=== PATIENT | female | born 1985 | race American Indian/Alaskan Native ===

== ENCOUNTER 2021-09-01 13:20 | Outpatient (CLI) | payer SELFPAY ==
[2021-09-01] MEDS ORDERED: LACTATED RINGERS 1,000 ML IV ONE (15:43)
[2021-09-01 16:43] LABS: Bilirubin,Urine NEG (Negative); Blood,Urine NEG (Negative); Color,Urine Yellow (Yellow); Protein,Urine <15 mg/dL mg/dL (Negative); Urobilinogen,Urine < 2.0 mg/dL (<2.0)
[2021-09-01 17:39] VITALS: BP 94/56
--- NOTE | 2021-09-01 18:18 | Event Note ---
Date: 09/01/21 called by CNMW with abnormal u/s report for pt at 28wks with polyhydramnios of 36 with concerns for anomaly. Pt seen in triage with ctx and cervix closed and FFN negative. I spoke with [facility], Dr. Karimi, who states he can see pt later this wk and pt given appt for 09/05/21 at the [place] office. Pt encouraged to be compliant. BPP 8/8. FHR with ctx that resolved after fluids given. Pt also given diflucan 150mg x1 for wetprep done with yeast. All questions encouraged and answered and shared decision making done with follow up with high [facility].
[2021-09-01] MEDS ORDERED: FLUCONAZOLE 200 MG TAB PO ONE (19:00)
[2021-09-02] MEDS ORDERED: FLUCONAZOLE 100 MG TAB PO ONE (17:44)
== END 2021-09-01 19:30 | disposition home or self-care (01) ==
LOC: APU 13:20 → TRG 13:20
PROVIDERS: ATTEND Obstetrics & Gynecology
DX: O40.3XX0 Polyhydramnios, third trimester, not applicable or unspecified (principal); O09.523 Supervision of elderly multigravida, third trimester; Z3A.29 29 weeks gestation of pregnancy
CPT/HCPCS: 36415; 59025; 81001; 82731; 87210; 96360; J7120

== ENCOUNTER 2021-10-31 09:07 | Outpatient (CLI) | payer SELFPAY ==
[2021-10-31 11:22] VITALS: BP 118/80
[2021-10-31] MEDS ORDERED: LACTATED RINGERS 500 ML IV ONE (13:34)
[2021-10-31 14:08] LABS: Bacteria,Urine 2+ /HPF (Negative)
[2021-10-31 14:13] LABS: Color,Urine Straw (Yellow)
[2021-10-31 14:42] LABS: Basophils # (Auto) 0.1 K/mm3 (0.0-0.1); Eosinophils % (Auto) 0.3 % (0.0-4.3); Hematocrit 37.9 % (30.3-42.9); Hemoglobin 12.9 gm/dl (10.1-14.3); Lymphocytes # (Auto) 1.7 K/mm3 (1.2-5.4); Lymphocytes % (Auto) 21.7 % (13.4-35.0); Mean Corpuscular HGB Conc 34 % (30-34); Mean Corpuscular Volume 81 fl (79-97); Monocytes # (Auto) 0.6 K/mm3 (0.0-0.8); Monocytes % (Auto) 7.5 % (0.0-7.3); Platelet Count 233 K/mm3 (140-440); Red Cell Distribution Width 16.4 % (13.2-15.2)
[2021-10-31 14:54] LABS: Alanine Aminotransferase 91 units/L (7-56); Albumin 3.6 g/dL (3.9-5); Blood Urea Nitrogen 7 mg/dL (7-17); Calcium 9.5 mg/dL (8.4-10.2); Hemolysis Index 7
[2021-10-31 14:55] LABS: BUN/Creatinine Ratio 14
--- NOTE | 2021-10-31 15:42 | Ultrasound Report ---
Limited OB ultrasound Biophysical profile INDICATION: Obstruction FINDINGS: There is a single live intrauterine in cephalic position. Fundal placenta grade 1 . heart rate 1 56 bpm. Estimated age 36 weeks 5 days. No placental separation or abruption is s een. Biophysical profile 8 out of 8. IMPRESSION: Single live intrauterine . No abruption is seen. Biophysical profile 8 out of 8 Signer Name: Jamari Garay MD Signed: 10/31/2021 3:37 PM Workstation Name: [facility]
--- NOTE | 2021-10-31 15:42 | Ultrasound Report ---
Limited OB ultrasound Biophysical profile INDICATION: Obstruction FINDINGS: There is a single live intrauterine in cephalic position. Fundal placenta grade 1 . heart rate 1 56 bpm. Estimated age 36 weeks 5 days. No placental separation or abruption is s een. Biophysical profile 8 out of 8. IMPRESSION: Single live intrauterine . No abruption is seen. Biophysical profile 8 out of 8 Signer Name: Jamari Garay MD Signed: 10/31/2021 3:37 PM Workstation Name: [facility]
== END 2021-10-31 16:18 | disposition home or self-care (01) ==
LOC: TRG 09:07 → APU 09:08 → TRG 16:18
PROVIDERS: ATTEND Obstetrics & Gynecology Gynecology
DX: O26.893 Other specified pregnancy related conditions, third trimester (principal); R10.9 Unspecified abdominal pain; O09.523 Supervision of elderly multigravida, third trimester; Z3A.36 36 weeks gestation of pregnancy
CPT/HCPCS: 36415; 59025; 76815; 76819; 80053; 81001; 85025; 87086; 96360

== ENCOUNTER 2021-11-05 10:14 | Outpatient (CLI) | payer SELFPAY ==
[2021-11-05 12:06] VITALS: BP 119/76
--- NOTE | 2021-11-05 13:47 | Ultrasound Report ---
ULTRASOUND OBSTETRIC ULTRASOUND BIOPHYSICAL PROFILE INDICATION: Evaluate anatomy/ well being. Clinical Gestational Age (GA): 37.3 weeks TECHNIQUE: Transabdominal. COMPARISON: Limited OB ultrasound performed on 10/31/2021. FINDINGS: There is a single intrauterine . Biparietal Diameter = 9.17 cm = 37 weeks, 2 day(s). Head Circumference = 33.03 cm = 37 weeks, 4 day(s). Abdominal Circumference = 33.36 cm = 37 weeks, 2 day(s). Femur Length = 7.32 cm = 37 weeks, 3 day(s). Average Ultrasound Age (AUA) = 37 weeks, 3 day(s). Heart Rate: 141 beats per minute. Estimated Weight in grams (if calculated): 3185 Estimated Weight Growth Percentile (if calculated): 57 Position: breech. Cervix: closed. Length in cm (if measured): Not measured Placenta: posterofundal and free of the os. Amniotic Fluid Volume: normal Amniotic Fluid Index (OTILIA) in cm (if calculated): 18.6. Maternal Adnexa: No significant abnormality. anatomy: There is limited visualization of the brain. No other significant abnormality. BREATHING MOVEMENT = 2 GROSS BODY MOVEMENT = 2 TONE = 2 QUALITATIVE AMNIOTIC FLUID VOLUME = 2 TOTAL BIOPHYSICAL SCORE = 8/8 IMPRESSION: 1. Single, living intrauterine with estimated sonographic age of 37 weeks, 3 day(s). 2. No significant sonographic abnormality. 3. Normal biophysical profile of /8. Signer Name: Babar Barrientos MD Signed: 11/05/2021 1:43 PM Workstation Name: [email or web address]
== END 2021-11-05 12:35 | disposition home or self-care (01) ==
LOC: TRG 10:14 → APU 10:16 → TRG 12:35
PROVIDERS: ATTEND Obstetrics & Gynecology Gynecology
DX: O09.893 Supervision of other high risk pregnancies, third trimester (principal); Z3A.37 37 weeks gestation of pregnancy
CPT/HCPCS: 59025; 76805; 76819

== ENCOUNTER 2021-11-06 14:28 | Inpatient (IN) | payer SELFPAY ==
--- NOTE | 2021-11-06 15:03 | History and Physical Report ---
History of Present Illness Date of examination: 11/06/21 Date of admission: 11/06/2021 Chief complaint: My water broke today at 1330. History of present illness: Early entry to care; course complicated by a UTI (treated); Vitamin D Deficiency (PO Vit. D Supplements); a abnormal ultrasound at 29 5/7 weeks in which no stomach was seen and Polyhramnios was appreciated (had normal anatomy scan at [facility]). Past History Past Medical History: no pertinent history Past Surgical History: section Family/Genetic History: none Social history: no significant social history, single - Obstetrical History Expected Date of Delivery: 11/23/21 Actual Gestation: 37 Week(s) 4 Day(s) : 3 Para: 2 Hx # Term Pregnancies: 2 Number of Living Children: 2 #1 Gender: Female year: 2,[birth year] Birthweight: 3.544 kg Method of Delivery: #2 Infant Gender: Male year: 2,[birth year] Birthweight: 3.43 kg Method of Delivery: Medications and Allergies Allergies Allergy/AdvReac Type Severity Reaction Status Date / Time No Known Allergies Allergy Verified 11/05/21 10:42 Home Medications Medication Instructions Recorded Confirmed Last Taken Type Vit-Fe Fumar-FA [ 1 tab PO QDAY 11/05/21 11/05/21 11/04/21 History Vitamin] Review of Systems All systems: negative - Vital Signs Vital signs: Vital Signs Pulse Pulse Ox 113 H 99 11/06/21 14:55 11/06/21 14:55 Temp Pulse Resp BP Pulse Ox 110 H 131/82 99 11/06/21 14:56 11/06/21 14:56 11/06/21 14:55 - Physical Exam Breasts: Positive: normal Cardiovascular: Regular rate Lungs: Positive: Clear to auscultation Abdomen: Positive: normal appearance, soft, normal bowel sounds Genitourinary (Female): Positive: normal external genitalia, normal perenium Vagina: Positive: normal moisture Uterus: Positive: enlarged Anus/Rectum: Positive: normal perianal skin Extremities: Positive: normal - Obstetrical FHR: category 1 Uterine Contraction Monitor Mode: External Cervical Dilatation: 1 (leaking a large amount of clear fluid) Cervical Effacement Percentage: 40 station: -4 Uterine Contraction Pattern: Irregular Uterine Tone Measurement Phase: Resting Uterine Contraction Intensity: Mild Results All other labs normal. Assessment and Plan A: IUP @ 37 4/7 weeks Category I Tracing PROM Previous x 2 Desires Sterilization AMA GBS Positive + Antibody Screen (Anti-M) P: Admit to L&D per Routine Orders Consult Dr. Page for Repeat and BTL Prepare for Repeat
[2021-11-06] MEDS ORDERED: METOCLOPRAMIDE 10 MG/2 ML INJ IV ONE (15:10)
[2021-11-06] MEDS ORDERED: BICITRA ORAL LIQD 30ML PO ONE (15:10)
--- NOTE | 2021-11-06 15:58 | Anesthesia Day of Surgery ---
Anesthesia Day of Surgery - Day of Surgery Patient Examined: Yes Patient H&P Reviewed: Yes Patient is NPO: Yes
--- NOTE | 2021-11-06 15:59 | Anesthesia Consultation ---
Anesthesia Consult and Med Hx Date of service: 11/06/21 - Airway Anesthetic Teeth Evaluation: Poor ROM Head & Neck: Adequate Mental/Hyoid Distance: Adequate Mallampati Class: Class II Intubation Access Assessment: Probably Good - Pulmonary Exam CTA: Yes - Cardiac Exam Cardiac Exam: RRR - Pre-Operative Health Status ASA Pre-Surgery Classification: ASA2 Proposed Anesthetic Plan: Spinal - Pulmonary Hx Smoking: No Hx Asthma: No Hx Respiratory Symptoms: No - Cardiovascular System Hx Hypertension: No - Central Nervous System Hx Seizures: No Hx Back Pain: Yes Hx Psychiatric Problems: No - Gastrointestinal Hx Gastroesophageal Reflux Disease: Yes - Endocrine Hx Renal Disease: No Hx Hypothyroidism: No Hx Hyperthyroidism: No - Hematic Hx Anemia: No Hx Sickle Cell Disease: No - Other Systems Hx Alcohol Use: No Hx Substance Use: No
[2021-11-06] MEDS ORDERED: ceFAZolin/Water 2 GM/20 ML 2 GM/20 ML SYRINGE IV NR (16:00)
[2021-11-06] MEDS ORDERED: FAMOTIDINE 20 MG/2 ML INJ IV ONE (16:00)
[2021-11-06] MEDS ORDERED: OXYTOCIN DRIP 30 UNITS/500 ML BAG IV SCH ×3 (16:00→19:00)
[2021-11-06] MEDS ORDERED: MINERAL OIL 30 ML ORAL LIQD PO PRN (16:10)
[2021-11-06] MEDS ORDERED: NalbUPHINE 10 MG/1 ML INJ IV PRN (16:10)
[2021-11-06] MEDS ORDERED: fentaNYL 100 MCG/2 ML INJ IV PRN (16:10)
[2021-11-06] MEDS ORDERED: ACETAMINOPHEN 325 MG TAB PO PRN ×2 (16:10→18:35)
[2021-11-06] MEDS ORDERED: METHYLERGONOVINE MALEATE 0.2 MG/ML VIAL IM PRN (16:10)
[2021-11-06] MEDS ORDERED: LIDOCAINE (2%) 20 MG/1 ML VIAL 20 ML MDV INFILTRATI ONE (16:10)
[2021-11-06] MEDS ORDERED: miSOPROStol 200 MCG TAB PR PRN (16:10)
[2021-11-06] MEDS ORDERED: TERBUTALINE 1 MG/1 ML INJ SUB-Q PRN (16:10)
[2021-11-06] MEDS ORDERED: LOPERAMIDE 2 MG CAP PO PRN (16:10)
[2021-11-06] MEDS ORDERED: BUTORPHANOL 2 MG/1 ML INJ IV PRN ×2 (16:10)
[2021-11-06] MEDS ORDERED: CARBOPROST TROMETHAMINE 250 MCG/1 ML INJ IM PRN (16:10)
[2021-11-06] MEDS ORDERED: OXYTOCIN 10 UNIT/1 ML INJ IM PRN (16:10)
[2021-11-06] MEDS ORDERED: LACTATED RINGERS 1,000 ML IV SCH ×2 (16:15→17:00)
[2021-11-06 16:27] LABS: Basophils # (Auto) 0.1 K/mm3 (0.0-0.1); Basophils % (Auto) 1.8 % (0.0-1.8); Eosinophils % (Auto) 0.4 % (0.0-4.3); Hematocrit 39.1 % (30.3-42.9); Lymphocytes # (Auto) 1.5 K/mm3 (1.2-5.4); Lymphocytes % (Auto) 22.6 % (13.4-35.0); Mean Corpuscular HGB Conc 33 % (30-34); Mean Corpuscular Volume 83 fl (79-97); Monocytes # (Auto) 0.4 K/mm3 (0.0-0.8); Monocytes % (Auto) 6.7 % (0.0-7.3); Platelet Count 219 K/mm3 (140-440); Red Blood Count 4.73 M/mm3 (3.65-5.03); Red Cell Distribution Width 17.9 % (13.2-15.2)
[2021-11-06] MEDS ORDERED: AZITHROMYCIN/NS 500 MG/250 ML 500 MG/250 ML BAG IV SCH (17:00)
[2021-11-06] MEDS ORDERED: BUPIVACAINE/PF (0.5%) 5 MG/1 ML 30 ML VIAL INFILTRATI ONE (18:14)
[2021-11-06] MEDS ORDERED: MORPHINE PF 10MG/10 ML AMPULE ONE (18:15)
[2021-11-06] MEDS ORDERED: PHENYLEPHRINE 10 MG/1 ML INJ SDV ONE (18:18)
[2021-11-06] MEDS ORDERED: ONDANSETRON 4 MG/2 ML INJ ONE ×2 (18:20)
--- NOTE | 2021-11-06 18:33 | Procedure Note ---
OB Delivery Note - Delivery Date of Delivery: 11/06/21 Surgeon: VINAYAK PERALES Estimated blood loss: other (642 mL) - Section Preop diagnosis: repeat Postop diagnosis: same section procedure: section, bilateral tubal ligation Disposition: PACU Complications: none - Infant A at 1 minute: 8 at 5 minutes: 9 (Weight 6 pounds 12 ounces) Infant Gender: Male (Weight 6 pounds 12 ounces)
--- NOTE | 2021-11-06 18:34 | Operative Report ---
Operative Report Operative Report: Date of surgery: November 06, 2021 Preoperative diagnosis: at 37+4 weeks; previous delivery; spontaneous rupture membranes; undesired fertility Postoperative diagnosis: Same as above Procedure: Repeat low transverse delivery; bilateral tubal ligation via Hilmar-Irwin method Surgeon: Tsering Hernandez M.D. Anesthesia: Regional Estimated blood loss: QBL 642 mL IV fluids: 1800 mL Urine output: 400 mL Findings: Liveborn male infant in breech presentation with Apgars of 8 and 9 weight 6 pounds 12 ounces Indications: 36-year-old -0-0-2 at 37+4 weeks who presents to labor and delivery with gross rupture of membranes. The patient has a history of 2 prior deliveries and has undesired fertility. She is elected for permanent sterilization. Procedure: The patient was taken to the operating room and given regional anesthesia without complication. She was prepped and draped in a normal sterile fashion. A Pfannenstiel skin incision was made down to layer the fascia which was nicked in the midline extended laterally with the Bovie cautery. The superior aspect of the rectus fascia was grasped with Fostoria clamps x2 and the rectus muscles off sharply. This was done in inferior fashion as well. The rectus muscle midline and peritoneum entered bluntly. The patient exhibited findings of diastases of the rectus muscle. An [place] retractor was then inserted. A bladder blade was placed. The vesicouterine peritoneum was then entered sharply with Metzenbaum scissors. A bladder flap was created digitally. A low transverse uterine incision was then made and extended digitally. There was clear fluid upon entry into the uterine cavity. The buttocks were delivered through the incision with fundal pressure. The head was delivered with fundal pressure. The cord was clamped and cut x2 and infant was passed off to pediatrics. The placenta was then manually extracted. The uterus was then exteriorized and cleared of clots and debris. The uterine incision was then closed in a running locked fashion with 0 Vicryl additional imbricating stitch was applied for 2 layer closure. Attention was turned to the patient's right tube with ampullary portion of the tube was grasped with a [place]. The mesosalpinx was transected with the Bovie cautery. The distal and proximal area of the ampullary tube were ligated and transected. This is done on the contralateral side as well. 1 cm portion of the ampullary tube was excised. The posterior cul-de-sac was then copiously irrigated. The uterus was replaced back into the abdomen and pelvis were the gutters were then irrigated. The [place] retractor was then removed. The peritoneum was then reapproximated with 3-0 Vicryl incorporating the rectus muscle. The fascia was then closed with 0 Vicryl in a running fashion. The skin was then reapproximated with 3-0 Monocryl on a Rosalino needle subcuticular fashion. Steri-Strips to place across the incision and a Crede procedures performed at the end of the surgery. A pressure dressing was applied to the incision. The surgery productive of a liveborn male with Apgars of 8 and 9 weight 6 pounds 12 ounces. The patient was taken to the recovery room in stable condition. All sponge laps and needle counts correct x2.
[2021-11-06] MEDS ORDERED: WITCH HAZEL/ GLYCERIN PAD TP PRN (18:35)
[2021-11-06] MEDS ORDERED: KETOROLAC 30 MG/1 ML INJ IV PRN (18:35)
[2021-11-06] MEDS ORDERED: MORPHINE 4 MG/1 ML INJ IV PRN (18:35)
[2021-11-06] MEDS ORDERED: NALOXONE 0.4 MG/1 ML INJ IV PRN (18:35)
[2021-11-06] MEDS ORDERED: LANOLIN/ZINC/DIMETHICONE (LANSINOH) 7 GM TP PRN (18:35)
[2021-11-06] MEDS ORDERED: D5W/LACTATED RINGERS 1,000 ML IV SCH (19:00)
[2021-11-06] MEDS ORDERED: WATER FOR IRRIG STERILE 1,500 ML BOTTLE IR ONE (19:13)
[2021-11-06] MEDS ORDERED: SODIUM CHLORIDE 0.9% IRR 1,500 ML BOTTLE IR ONE (19:13)
[2021-11-06] MEDS ORDERED: KETOROLAC 30 MG/1 ML INJ ONE (19:19)
[2021-11-06] MEDS ORDERED: LACTATED RINGERS 1,000 ML ONE (19:25)
[2021-11-06] MEDS ORDERED: dexAMETHasone 20 MG/5 ML VIAL ONE (19:28)
--- NOTE | 2021-11-06 19:59 | Progress Note ---
Spinal Anesthesia Block - Spinal Anesthesia Block Start Time: 18:23 Stop Time: 18:28 Performed by:: HANS PLAZA Procedure: Patient IDed, H&P reviewed, all questions and concerns were answered, and consent was signed. Timeout was performed at bedside. Patient in sitting position. Sterile prep and drape was performed. [3] ml of 1% lidocaine skin wheal at L[3]- L [4] x 1 attempt. Needle introducer advanced. 24 gauge spinal needle advanced. Clear, free flowing CSF. negative blood, negative paresthesia. Spinal dose given. All needles removed. Patient tolerated procedure.
--- NOTE | 2021-11-06 20:00 | Progress Note ---
Regional Anesthesia Block - Regional Anesthesia Block Start Time: 19:37 Stop Time: 19:40 Performed By:: HANS PLAZA Procedure: Patient consented for TAP block for post surgical pain management. Patient identified, monitors placed, and time out performed. TAP identified bilaterally via ultrasound. Skin prepped bilaterally with [chlorhexidine] and [22g stimuplex] needle advanced to the TAP. [Marcaine 0.22% 35ml] injected under ultrasound guidance on the [left] side. [Marcaine 0.22% 35ml] injected under ultrasound guidance on the [right] side. Negative aspiration every 5mL, No change in heart rate or rhythm. Patient tolerated the procedure well. No apparent complications seen.
--- NOTE | 2021-11-07 08:31 | Progress Note ---
Assessment and Plan A: POD # 1 -stable P: Continue post op care Subjective - Subjective Date of service: 11/07/21 Principal diagnosis: POD # 1 Prev Patient reports: appetite normal [place]: doing well Objective - Vital Signs Latest vital signs: Vital Signs Temp Pulse Resp BP BP Pulse Ox Pulse Ox 11/07/21 07:33 98.5 F 84 16 118/76 100 11/07/21 05:07 97.9 F 0 L 124/28 11/07/21 02:00 98.0 F 11/07/21 00:11 97.2 F L 86 18 123/79 100 11/06/21 21:35 97.9 F 85 16 102/71 99 99 11/06/21 20:47 98.3 F 11/06/21 20:45 89 17 99/61 100 11/06/21 20:30 97 H 16 95/59 99 11/06/21 20:15 94 H 18 98/65 100 11/06/21 20:00 94 H 15 96/58 100 11/06/21 19:55 91 H 13 101/54 100 11/06/21 19:52 100 H 22 97/58 100 11/06/21 19:50 98.3 F 11/06/21 18:10 99 H 100 11/06/21 18:05 95 H 100 11/06/21 18:00 95 H 100 11/06/21 17:55 94 H 100 11/06/21 17:52 100 H 125/82 11/06/21 17:50 108 H 100 11/06/21 17:45 100 H 100 11/06/21 17:40 95 H 100 11/06/21 17:35 94 H 100 11/06/21 17:30 96 H 100 11/06/21 17:25 104 H 100 11/06/21 17:20 100 H 99 11/06/21 17:15 99 H 100 11/06/21 17:10 113 H 99 11/06/21 17:05 105 H 99 11/06/21 17:00 109 H 99 11/06/21 16:55 116 H 99 11/06/21 16:50 108 H 99 11/06/21 16:45 107 H 100 11/06/21 16:40 113 H 100 11/06/21 16:35 107 H 100 11/06/21 16:30 106 H 99 11/06/21 16:25 99 H 100 11/06/21 16:20 106 H 100 11/06/21 16:15 104 H 99 11/06/21 16:13 99 11/06/21 16:10 103 H 100 11/06/21 16:05 100 H 100 11/06/21 16:00 100 H 100 11/06/21 15:55 96 H 100 11/06/21 15:50 99 H 100 11/06/21 15:45 111 H 100 11/06/21 15:42 105 H 85 11/06/21 15:40 107 H 100 11/06/21 15:37 98 F 16 11/06/21 15:35 103 H 100 11/06/21 15:30 107 H 100 11/06/21 15:25 108 H 100 11/06/21 15:20 115 H 99 11/06/21 15:15 114 H 99 11/06/21 15:10 103 H 99 11/06/21 15:05 107 H 99 11/06/21 15:00 120 H 99 11/06/21 14:56 110 H 131/82 11/06/21 14:55 113 H 99 Intake and Output 11/06/21 11/07/21 11/07/21 22:59 06:59 14:59 Intake Total 2000 250 Output Total 500 1000 Balance 1500 -750 Intake: IV 2000 Oral 250 Output: Urine 500 1000 Indwelling Catheter 1000 Other: Total, Intake Amount 250 Total, Output Amount 500 Weight 130 lb Estimated Blood Loss 642 - Exam Breasts: Present: deferred Cardiovascular: Present: Regular rate Lungs: Present: Clear to auscultation Abdomen: Present: soft Vulva: both: normal Uterus: Present: fundal height below umbilicus Deep Tendon Reflex Grade: Normal +2 Incision: Present: dressed - Labs Labs: Abnormal lab results 11/06/21 Range/Units 16:10 RDW 17.9 H (13.2-15.2) %
--- NOTE | 2021-11-07 11:52 | Post Anesthesia Evaluation ---
- Post Anesthesia Evaluation Patient Participated: Yes Airway Patent: Yes Stable Respiratory Function: Yes Nausea/Vomiting: No Temp > 96.8F: Yes Pain Manageable: Yes Adequeate Hydration: Yes Anesthesia Complications: No Block Receding Appropriately: Yes Patient on Ventilator: No
[2021-11-07 11:54] LABS: Hematocrit 33.3 % (30.3-42.9); Hemoglobin 10.9 gm/dl (10.1-14.3)
[2021-11-07] MEDS: SIMETHICONE 80 MG CHEW TAB PO PRN (15:28)
[2021-11-07] MEDS: oxyCODONE /ACETAMINOPHEN 5-325MG TAB PO PRN (18:15)
[2021-11-07] MEDS: IBUPROFEN 600 MG TAB PO PRN (22:31)
[2021-11-08] MEDS: SIMETHICONE 80 MG CHEW TAB PO PRN ×2 (03:22→19:26)
[2021-11-08] MEDS: oxyCODONE /ACETAMINOPHEN 5-325MG TAB PO PRN ×3 (03:22→19:08)
--- NOTE | 2021-11-08 08:58 | Progress Note ---
Assessment and Plan A: POD # 2- stable P: will give suppository to assist with gas movement Plan discharge home in am Discharge instructions given Subjective - Subjective Date of service: 11/08/21 Principal diagnosis: POD # 2 Prev Patient reports: appetite normal : doing well Objective - Vital Signs Latest vital signs: Vital Signs Temp Pulse Resp BP Pulse Ox Pulse Ox 11/08/21 03:22 18 11/07/21 22:32 98.0 F 105 H 18 106/67 100 11/07/21 22:31 18 11/07/21 20:10 98 11/07/21 16:35 97.8 F 109 H 20 101/71 100 11/07/21 12:45 98.0 F 104 H 20 96/64 100 Intake and Output 11/07/21 11/08/21 11/08/21 22:59 06:59 14:59 Intake Total 200 200 Balance 200 200 Intake: Oral 200 Intake, Free Water 200 Other: Total, Intake Amount 200 # Voids Void 1 - Exam Breasts: Present: deferred Cardiovascular: Present: Regular rate Lungs: Present: Clear to auscultation Abdomen: Present: soft Vulva: both: normal Uterus: Present: fundal height below umbilicus Deep Tendon Reflex Grade: Normal +2 Incision: Present: dressed
--- NOTE | 2021-11-08 08:59 | Discharge Summary ---
Providers - Providers Date of Admission: 11/06/21 16:10 Date of discharge: 11/09/21 Attending physician: ELOISA MARRERO MD Primary care physician: ELOISA MARRERO MD Hospitalization Reason for admission: section Delivery: Procedure: repeat low transverse Incision: dressed complications: none Discharge diagnosis: IUP at term delivered [place] baby: male Condition at discharge: Good Disposition: 01 HOME / SELF CARE / HOMELESS Plan - Provider Discharge Summary Activity: routine, no sex for 6 weeks, no strenuous exercise Diet: routine Instructions: routine Additional instructions: [] Smoking cessation referral if applicable(refer to patient education folder for contact #) [] Refer to [facility]'s [facility] Booklet Call your doctor immediately for: * Fever > 100.5 * Heavy vaginal bleeding ( >1 pad per hour) * Severe persistent headache * Shortness of breath * Reddened, hot, painful area to leg or breast * Drainage or odor from incision. * Keep incision clean and dry at all times and follow doctor's instructions regarding bathing/showering - Follow up plan Follow up: ELOISA MARRERO MD [Primary Care Provider] - 14 Days
[2021-11-09] MEDS: IBUPROFEN 600 MG TAB PO PRN (01:32)
[2021-11-09] MEDS: oxyCODONE /ACETAMINOPHEN 5-325MG TAB PO PRN (12:05)
[2021-11-09 13:13] VITALS: BP 113/81
== END 2021-11-09 13:57 | disposition home or self-care (01) | DRG 785 ==
LOC: TRG 14:28 → LD 14:29 → TRG 16:19 → APU 18:18 → OB 22:01
PROVIDERS: ADMIT Obstetrics & Gynecology Gynecology; ATTEND Obstetrics & Gynecology Gynecology
PROC: 10D00Z1 Extraction of Products of Conception, Low, Open Approach (ICD-10-PCS; principal; 2021-11-06)
PROC: 0UB70ZZ Excision of Bilateral Fallopian Tubes, Open Approach (ICD-10-PCS; 2021-11-06)
PROC: 3E0T3BZ Introduction of Anesthetic Agent into Peripheral Nerves and Plexi, Percutaneous Approach (ICD-10-PCS; 2021-11-06)
DX: O32.1XX0 Maternal care for breech presentation, not applicable or unspecified (principal); O34.211 Maternal care for low transverse scar from previous cesarean delivery; B95.1 Streptococcus, group B, as the cause of diseases classified elsewhere; Z3A.37 37 weeks gestation of pregnancy; Z37.0 Single live birth; Z30.2 Encounter for sterilization; Z20.822 Contact with and (suspected) exposure to COVID-19; O42.92 Full-term premature rupture of membranes, unspecified as to length of time between rupture and onset of labor; O99.824 Streptococcus B carrier state complicating childbirth
CPT/HCPCS: 36415; 85014; 85018; 85025; 86850; 86900; 86901; 88302; G0378; J3490; J7060; J0456; J1100; J1885; J2270; J2274; J2370; J2405; J2765; J7120; J7121; U0003